=== PATIENT | male | born 1940 ===

== ENCOUNTER 2018-04-21 06:23 | Inpatient (IN) | payer OTHER ==
[~2018-04-21] VITALS: Ht 157.5 cm; Wt 70.3 kg
[2018-04-21] MEDS ORDERED: ASPIR 8181 MG (06:47)
[2018-04-21] MEDS ORDERED: COZAAR50 MG (06:47)
[2018-04-21] MEDS ORDERED: LANTUS SOL100 UNIT/1 (06:48)
[2018-04-25] MEDS ORDERED: DOXYCYCLINE HY100 M2 PO (11:55)
== END 2018-04-25 14:13 | disposition home or self-care (01) | DRG 256 ==
LOC: ER 06:23 → SEC-K 18:09 → MEDJ 18:09 → MEDI 04-23 21:03 → MEDJ 04-24 16:48
PROVIDERS: Specialist
PROC: BT43ZZZ Ultrasonography of Bilateral Kidneys (ICD-10-PCS; 2018-04-22)
PROC: 0Y6W0Z0 Detachment at Left 4th Toe, Complete, Open Approach (ICD-10-PCS; principal; 2018-04-22 16:00)
PROC: 8E0ZXY6 Isolation (ICD-10-PCS; 2018-04-24)
DX: E11.52 Type 2 diabetes mellitus with diabetic peripheral angiopathy with gangrene (principal); I96 Gangrene, not elsewhere classified; L97.528 Non-pressure chronic ulcer of other part of left foot with other specified severity; M86.172 Other acute osteomyelitis, left ankle and foot; N17.8 Other acute kidney failure; E11.69 Type 2 diabetes mellitus with other specified complication; E11.621 Type 2 diabetes mellitus with foot ulcer; I10 Essential (primary) hypertension; Z86.73 Personal history of transient ischemic attack (TIA), and cerebral infarction without residual deficits; B95.62 Methicillin resistant Staphylococcus aureus infection as the cause of diseases classified elsewhere